=== PATIENT | female | born 1945 | race Caucasian/White ===

== ENCOUNTER 2016-10-09 16:21 | Emergency (ER) | payer MEDICARE, OTHER ==
[~2016-10-09] VITALS: Ht 160 cm; Wt 84.0 kg
[~2016-10-09 16:21] MED LIST: ORPH100T PO; OS-CTAB3 PO; OSTEOFLEX PO; PRAV10 PO; QUET1TAB67 PO; TRAZ100 PO
[2016-10-09 16:22] VITALS: BP 168/98; PULSE 78; RESP 14; TEMP 97.9; O2SAT 98
--- NOTE | 2016-10-09 17:10 | PD ---
HPI Chief Complaint: Medication Refill Request Time Seen by Provider: 17:09 Travel History International Travel<30 days: No Contact w/Intl Traveler<30days: No Traveled to known affect area: No History of Present Illness HPI Patient comes in requesting refills of her Seroquel and trazodone. Patient states she is here until December and her doctor [place] would not refill them without seeing her. Patient's visiting from [place] and is uncertain where she could go to get these medications filled. Patient still has plenty of both medications however did not wait for the last minute to get them refilled. Patient reports she is on these for anxiety. Patient denies any other concerns or complaints. Denies any fever, chest pain, shortness of breath , nausea, vomiting, or pain anywhere. PFSH Past Medical History Anxiety: Yes Social History Alcohol Use: No Tobacco Use: No Substance Use: No Allergies-Medications (Allergen,Severity, Reaction): Coded Allergies: Depakote (Verified Allergy, Severe, 10/09/16) Minocycline (Verified Allergy, Severe, 10/09/16) Reported Meds & Prescriptions Reported Meds & Active Scripts Active Norflex (Orphenadrine Citrate) 100 Mg Arnav 100 Mg PO BIDPRN Reported Pravastatin Sodium 10 Mg Tab 10 Mg PO DAILY UNKNOWN DOSE [Osteoflex] PO DAILY Calcium 500/Vitamin D (Calcium/Vitamin D) Tab 1 PO DAILY Trazodone Hcl (Trazodone HCl) 100 Mg Tab 200 Mg PO HS Seroquel (Quetiapine Fumarate) 25 Mg Tab 25 Mg PO TID Review of Systems Except as stated in HPI: all other systems reviewed are Neg Physical Exam Narrative GENERAL: Well-developed, overly nourished, in no acute distress, and non-ill appearing. SKIN: Warm and dry. HEAD: Atraumatic. Normocephalic. EYES: Pupils equal and round. EOMI. No scleral icterus. No injection or drainage. ENT: No nasal bleeding or discharge. Mucous membranes pink and moist. NECK: Trachea midline. Supple. No nuclear rigidity. RESPIRATORY: No accessory muscle use. No respiratory distress. MUSCULOSKELETAL: No obvious deformities. No clubbing. No cyanosis. No edema. Full range of motion. NEUROLOGICAL: Awake and alert. No obvious cranial nerve deficits. Motor grossly within normal limits. Normal speech. PSYCHIATRIC: Appropriate mood and affect; insight and judgment normal. Data Data Last Documented VS Vital Signs Date Time Temp Pulse Resp B/P Pulse Ox O2 Delivery O2 Flow Rate FiO2 10/09/16 16:22 97.9 78 14 168/98 98 MDM Medical Decision Making Medical Screen Exam Complete: Yes Emergency Medical Condition: No Differential Diagnosis Medication refill, anxiety, bipolar, other Narrative Course Patient in no obvious distress upon re-evaluation. She was given information on where she could go to have her medications possibly refilled. Any questions/ concerns in reference to patient diagnosis/condition discussed and clarified prior to patient's discharge. Reinforced sheer importance of close follow up with patient's primary physician or primary care clinic. Instructed patient to return to ED immediately, if symptoms return/worsen. Pt showed understanding of above instructions. Further instructions and recommendations were detailed in discharge paperwork. Pt ambulated without difficulty out of ED at discharge. Diagnosis Primary Impression: Anxiety Referrals: [facility] Patient Instructions: General Instructions Additional Instructions: Follow-up with Maxim[facility] Gale[facility] as soon as possible for refills on your medication. Take all medication as prescribed. Return to the emergency department if symptoms get worse. Disposition: 01 DISCHARGE HOME Condition: Stable Rusty Luo Oct 09, 2016 17:10
== END 2016-10-09 17:23 | disposition home or self-care (01) ==
LOC: NEPB 16:21
DX: F41.9 Anxiety disorder, unspecified (principal)
CPT/HCPCS: 99281

== ENCOUNTER 2016-11-18 14:15 | Emergency (ER) | payer MEDICARE, OTHER ==
[~2016-11-18] VITALS: Ht 160 cm; Wt 89.0 kg
[2016-11-18 14:20] VITALS: BP 167/73; PULSE 70; RESP 18; TEMP 97.8; O2SAT 95
--- NOTE | 2016-11-18 14:23 | PD ---
Physical Exam Date Seen by Provider: Nov 18, 2016 Time Seen by Provider: 14:21 Narrative 71 YOWF C/O L KNEE AND LEG PAIN FOR 4 DAYS. NO INJURY. VSS, AWAITING BED PLACEMENT Data Data Last Documented VS Vital Signs Date Time Temp Pulse Resp B/P Pulse Ox O2 Delivery O2 Flow Rate FiO2 11/18/16 14:20 97.8 70 18 167/73 95 MDM Medical Record Reviewed: Yes Supervised Visit with ALECIA: Yes Cristopher Elise Nov 18, 2016 14:23
--- NOTE | 2016-11-18 16:25 | PD ---
HPI Chief Complaint: Musculoskeletal Complaint Time Seen by Provider: 16:18 Travel History International Travel<30 days: No Contact w/Intl Traveler<30days: No Traveled to known affect area: No History of Present Illness HPI Patient comes in for evaluation of left knee pain ongoing for 4 days. Patient denies any trauma, fevers, falling, stumbling, or other known injury. Patient states feels similar to when she had issues with her meniscus on the right. Patient reports that previously she had to get cortisone injections , which seemed to help. Patient denies any numbness or tingling. Pain is worse with walking. Patient describes pain as burning like sensation in her lateral aspect of her left. It radiates distally. Patient also requesting a refill of her trazodone that she takes 300 mg at night until she gets back to [place]. PFSH Past Medical History Anxiety: Yes Tetanus Vaccination: < 5 Years Social History Alcohol Use: No Tobacco Use: No Substance Use: No Allergies-Medications (Allergen,Severity, Reaction): Coded Allergies: Depakote (Verified Allergy, Severe, 11/18/16) Minocycline (Verified Allergy, Severe, 11/18/16) Reported Meds & Prescriptions Reported Meds & Active Scripts Active Trazodone (Trazodone HCl) 300 Mg Tab 300 Mg PO HS Tramadol (Tramadol HCl) 50 Mg Tab 50 Mg PO Q8H PRN Medrol Dosepak (Methylprednisolone) 4 Mg Dspk 4 Mg PO DIRECTED Per Pharmacist direction Reported [Osteoflex] PO DAILY Review of Systems Except as stated in HPI: all other systems reviewed are Neg Physical Exam Narrative GENERAL: Well-developed, overly nourished, in no acute distress, and non-ill appearing. SKIN: Focused skin assessment warm and dry. HEAD: Atraumatic. Normocephalic. EYES: Pupils equal and round. EOMI. No scleral icterus. No injection or drainage. ENT: No nasal bleeding or discharge. Mucous membranes pink and moist. NECK: Trachea midline. Supple. No nuclear rigidity. CARDIOVASCULAR: Dorsal pulses 2+, intact, and equal bilaterally. Capillary refill less than 2 seconds. RESPIRATORY: No accessory muscle use. No respiratory distress. MUSCULOSKELETAL: No obvious deformities. No clubbing. No cyanosis. No edema. Full range of motion. Knee: Negative patellar apprehension, varus and valgus maneuvers, anterior draw test, and Yessica test. Pulses equal BL distal to injury. Capillary refill less than 2 seconds distal to injury and equal BL. FROM distal to injury and equal BL. Strength distal to injury equal BL. NV intact distal to injury. Dorsal pulses equal BL. Sensation equal BL 1st web space. NEUROLOGICAL: Awake and alert. No obvious cranial nerve deficits. Motor grossly within normal limits. Normal speech. PSYCHIATRIC: Appropriate mood and affect; insight and judgment normal. Data Data Last Documented VS Vital Signs Date Time Temp Pulse Resp B/P Pulse Ox O2 Delivery O2 Flow Rate FiO2 11/18/16 14:20 97.8 70 18 167/73 95 Orders Splint Or Brace Apply/Monitor (11/18/16 16:17) Dexamethasone Inj (Decadron Inj) (11/18/16 16:30) MDM Medical Decision Making Medical Screen Exam Complete: Yes Emergency Medical Condition: Yes Differential Diagnosis Fracture, strain, contusion, other Narrative Course There is no clinical evidence for fracture. There is no clinical evidence to suspect bony injury by exam. No obvious ligamental injury or internal derangement is noted at this time. The distal extremity appears neurovascularly intact, without evidence of neurovascular injury nor compartment syndrome. Tendon exam also was intact. The effected limb was splinted. The patient was discharged on pain medication and given warnings for vascular compromise. The patient is to follow up with Orthopedics. The patient agrees with plan. Patient in no obvious distress upon re-evaluation. Patient was asked if they wanted to speak to my attending, which the patient did not wish to do at this time. Any questions/concerns in reference to patient diagnosis/condition discussed and clarified prior to patient's discharge. Reinforced sheer importance of close follow up with patient's primary physician or primary care clinic and/or orthopedics. Instructed patient to return to ED immediately, if symptoms return/worsen. Pt showed understanding of above instructions. Further instructions and recommendations were detailed in discharge paperwork. Pt ambulated without difficulty out of ED at discharge. Diagnosis Primary Impression: Knee pain, left Qualified Code: M25.562 - Acute pain of left knee Referrals: Tony Andrews Jr., MD Patient Instructions: General Instructions, Knee Pain (ED), Medication Refill, ED, Splint Care (ED) Additional Instructions: Follow-up with your primary care physician and/or orthopedics this week for evaluation. Take all medication as prescribed. Apply ice to affected area 20 minutes per hour as needed for pain. Wear Jermaine wrap as needed for comfort. Return to the emergency department if symptoms get worse. Med/Other Pt SpecificInfo: Prescription(s) given Scripts Trazodone 300 Mg [id number] Mg PO HS #14 TAB Ref 0 Prov:Lencoh Martines MD 11/18/16 Tramadol 50 Mg Tab50 Mg PO Q8H PRN (PAIN GREATER THAN 7) #7 TAB Ref 0 Prov:Lencho Martines MD 11/18/16 Methylprednisolone Dosepak (Medrol Dosepak)4 Mg Dspk4 Mg PO DIRECTED #1 DSPK Ref 0 Per Pharmacist direction Prov:Lencho Martines MD 11/18/16 Disposition: 01 DISCHARGE HOME Condition: Stable Rusty Luo Nov 18, 2016 16:25
[2016-11-18] MEDS ORDERED: TRAZ300T2 PO (16:30)
[2016-11-18] MEDS ORDERED: DEXAMETHASONE SOD PHOS 4 MG/ML VIAL IM ONE (16:30)
[2016-11-18] MEDS ORDERED: TRAM50TA PO (16:30)
[2016-11-18] MEDS ORDERED: MEDR4PAK PO (16:30)
== END 2016-11-18 17:11 | disposition home or self-care (01) ==
LOC: NEPE 14:15
DX: M25.562 Pain in left knee (principal)
CPT/HCPCS: 96372; 99283; J1100